=== PATIENT | male | born 1945 | race Caucasian/White ===

== ENCOUNTER → 2022-01-18 | Outpatient (CLI) | payer MEDICARE, MEDICAID ==
[~2022-01-18] MED LIST: IOHEXOL 350 MG/ML 100 ML VIAL ONE
== END | disposition home or self-care (01) ==
LOC: RADMN 08:15
PROVIDERS: ATTEND Internal Medicine
DX: L03.311 Cellulitis of abdominal wall (principal); K56.41 Fecal impaction; J90 Pleural effusion, not elsewhere classified; J18.1 Lobar pneumonia, unspecified organism; K57.32 Diverticulitis of large intestine without perforation or abscess without bleeding; M47.9 Spondylosis, unspecified
CPT/HCPCS: 74177; Q9967